=== PATIENT | male | born 1945 | race Caucasian/White ===

== ENCOUNTER 2017-01-24 13:31 | Emergency (ER) | payer MEDICARE ==
[2017-01-24] MEDS ORDERED: MORPHINE SULFATE 10 MG/ML SYRINGE IM STA (13:49)
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
--- NOTE | 2017-01-24 14:17 | XR ---
EXAMINATION TYPE: XR tibia fibula bilateral , 8 VIEWS DATE OF EXAM ORDERED: 01/24/2017 HISTORY: Pain. COMPARISON: None. FINDINGS: No fracture, dislocation or other acute osseous lesion is seen. There is a small plantar c alcaneal spur on the left. IMPRESSION: NO ACUTE OSSEOUS LESION.
[2017-01-24 15:01] VITALS: RESP 18; TEMP 98
[2017-01-24 16:18] VITALS: BP 137/77; PULSE 90
== END 2017-01-24 16:19 | disposition home or self-care (01) ==
LOC: EC 13:31
DX: S80.12XA Contusion of left lower leg, initial encounter (principal); S80.11XA Contusion of right lower leg, initial encounter; E78.5 Hyperlipidemia, unspecified; I10 Essential (primary) hypertension; Z79.899 Other long term (current) drug therapy; W23.0XXA Caught, crushed, jammed, or pinched between moving objects, initial encounter; Y93.17 Activity, water skiing and wake boarding
CPT/HCPCS: 99284; 96372; 73590; J2270

== ENCOUNTER → 2017-12-20 | Outpatient (CLI) | payer MEDICARE ==
--- NOTE | 2017-12-20 12:13 | XR ---
EXAMINATION TYPE: XR hand complete RT DATE OF EXAM: 12/20/2017 COMPARISON: NONE HISTORY: Pain TECHNIQUE: Three views are submitted. FINDINGS: The osseous structures are intact. There is severe arthropathy of the first 2 MCP joints. No acute fracture or dislocation. Severe arthropathy first carpal metacarpal joint. Mild arthropathy of the DIP joints. IMPRESSION: 1. Severe arthropathy first carpal metacarpal joint. Correlate for osteoarthritis.
== END | disposition home or self-care (01) ==
LOC: RADXRMAIN 11:48
PROVIDERS: ATTEND Internal Medicine
DX: M12.9 Arthropathy, unspecified (principal)

== ENCOUNTER 2019-01-31 07:58 | Day surgery (SDC) | payer MEDICARE ==
[2019-01-29 10:02] VITALS: BMI 24.4
[~2019-01-31 07:58] MED LIST: LACTATED RINGERS 1,000 ML IV SCH; LIDOCAINE 1% 20 ML VIAL (10MG/ML) FOR IV START INTRADERMA PRN
[2019-01-31] MEDS ORDERED: LACTATED RINGERS 1,000 ML IV ONE (08:12)
[2019-01-31 08:13] VITALS: TEMP 97.8
[2019-01-31] MEDS ORDERED: LIDOCAINE 1% INJ 10MG/ML (20 ML MDV) ONE (08:41)
[2019-01-31] MEDS ORDERED: PROPOFOL 10 MG/ML 20 ML VIAL IV ONE (08:41)
--- NOTE | 2019-01-31 09:00 | P.PCN ---
Date of Procedure: 01/31/19 Procedure(s) Performed: BRIEF HISTORY: Patient is a 71-year-old pleasant white male scheduled for an elective colonoscopy as a part of screening for colorectal neoplasia. His last colonoscopy was 10 years ago. PROCEDURE PERFORMED: Colonoscopy. PREOPERATIVE DIAGNOSIS: Screening for colon cancer. IV sedation per Anesthesia. PROCEDURE: After informed consent was obtained, the patient, was brought into the endoscopy unit. IV sedation was administered by Anesthesia under continuous monitoring. Digital rectal examination was normal. Initially the Olympus CF-160 flexible video colonoscope was then inserted in the rectum, gradually advanced into the cecum without any difficulty. Careful examination was performed as the scope was gradually being withdrawn. Ileocecal valve and the appendiceal orifice were visualized and appeared normal. Prep was excellent. Mucosa of the cecum, ascending colon, transverse colon, descending colon, sigmoid colon, and rectum appeared normal. Scattered sigmoid diverticulosis seen. Retroflexion was performed in the rectum and no lesions were seen. The patient tolerated the procedure well. IMPRESSION: Normal-appearing colon from rectum to cecum with no evidence of colorectal neoplasia. Scattered sigmoid diverticulosis RECOMMENDATIONS: Findings of this examination were discussed with the patient as well as his family. He was advised to have a repeat screening colonoscopy in 10 years..
[2019-01-31 09:06] VITALS: BP 113/70
[2019-01-31 09:22] VITALS: PULSE 79; RESP 16
== END 2019-01-31 10:03 | disposition home or self-care (01) ==
LOC: ORWHC2ENDO 07:58
PROVIDERS: ATTEND Internal Medicine Gastroenterology
DX: Z12.11 Encounter for screening for malignant neoplasm of colon (principal); K57.30 Diverticulosis of large intestine without perforation or abscess without bleeding; I10 Essential (primary) hypertension; E78.5 Hyperlipidemia, unspecified; Z79.899 Other long term (current) drug therapy; Z87.820 Personal history of traumatic brain injury; Z98.2 Presence of cerebrospinal fluid drainage device
CPT/HCPCS: J2001; J2704; G0121

== ENCOUNTER → 2020-01-14 | Outpatient (CLI) | payer MEDICARE | END | disposition home or self-care (01) | LOC: LABWHC1 13:21 | PROVIDERS: ATTEND Internal Medicine | DX: Z20.89 Contact with and (suspected) exposure to other communicable diseases (principal) ==

== ENCOUNTER → 2020-02-05 | Outpatient (CLI) | payer MEDICARE ==
--- NOTE | 2020-02-05 16:37 | XR ---
EXAMINATION TYPE: XR chest 2V DATE OF EXAM: 02/05/2020 CLINICAL HISTORY: Cough, weight loss TECHNIQUE: Frontal and lateral views of the chest are obtained. COMPARISON: None FINDINGS: Linear density over the right neck, chest, and upper abdomen may represent shunt catheter. The cardiomediastinal silhouette is within normal limits for size. Pulmonary vasculature is normal. There is no focal air space opacity, pleural effusion, or pneumothorax seen. There is diffuse bridgin g osteophytosis of the thoracic spine. IMPRESSION: 1. No acute cardiopulmonary process. 2. Bridging osteophytosis of the thoracic spine may represent diffuse idiopathic skeletal hyperostosi s (DISH).
== END | disposition home or self-care (01) ==
LOC: RADXRMAIN 10:15
PROVIDERS: ATTEND Internal Medicine
DX: R05 Cough (principal)
CPT/HCPCS: 71046

== ENCOUNTER 2020-02-20 10:46 | Emergency (ER) | payer MEDICARE ==
[2020-02-20 11:05] VITALS: RESP 18; TEMP 98.5
[2020-02-20] MEDS ORDERED: TOPICAL SKIN ADHESIVE 1 EACH AMP TOPICAL STA (11:24)
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
[2020-02-20] MEDS ORDERED: LIDOCAINE 1%-EPI 1:100,000 20 ML VIAL SQ STA (12:35)
[2020-02-20 13:14] VITALS: BP 150/75; PULSE 82
== END 2020-02-20 13:14 | disposition home or self-care (01) ==
LOC: EC 10:46
DX: I83.891 Varicose veins of right lower extremity with other complications (principal); I10 Essential (primary) hypertension; E78.5 Hyperlipidemia, unspecified; Z79.899 Other long term (current) drug therapy
CPT/HCPCS: 99283

== ENCOUNTER → 2020-02-22 | Outpatient (CLI) | payer MEDICARE ==
--- NOTE | 2020-02-22 14:20 | US ---
EXAMINATION TYPE: US kidneys/renal and bladder DATE OF EXAM: 02/22/2020 COMPARISON: NONE CLINICAL HISTORY: R13.9 HEMATURIA. EXAM MEASUREMENTS: Right Kidney: 10.5 x 4.9 x 5.0 cm Left Kidney: 10.7 x 4.5 x 5.6 cm Right Kidney: echogenic foci measuring 0.3 x 0.2 x0.3cm Left Kidney: large cyst measuring 12.1 x 6.4 x 10.8cm Bladder: wall slightly thickened, may be due to not being fully distended, patient felt full Bilateral Jets seen: left jet seen, right not visualized *Fluid pocket visualized in LUQ measuring IMPRESSION: 1. Nonobstructing right renal calculus. 2. There is a 12 cm simple left renal cyst. 3. Mild bladder wall thickening correlate for mild cystitis. Correlate clinically
== END | disposition home or self-care (01) ==
LOC: RADUSWWP 13:38
PROVIDERS: ATTEND Internal Medicine
DX: N20.0 Calculus of kidney (principal); N28.1 Cyst of kidney, acquired; N32.89 Other specified disorders of bladder; Z88.5 Allergy status to narcotic agent
CPT/HCPCS: 76770